=== PATIENT | female | born 1960 | race Asian ===

== ENCOUNTER 2016-10-01 14:15 | Emergency (ER) | payer OTHER ==
[~2016-10-01] VITALS: Ht 167.6 cm; Wt 63.6 kg
[2016-10-01 14:36] VITALS: BP 145/97; PULSE 82; RESP 19; O2SAT 100
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
[2016-10-01] MEDS ORDERED: AMOX-366 PO (17:36)
[2016-10-01] MEDS ORDERED: HYDR-4003 PO (17:36)
[2016-10-01] MEDS ORDERED: Amoxicillin-Clav 875-125 mg Tablet PO ONE (17:40)
[2016-10-01 18:07] VITALS: BP 129/68; PULSE 79; RESP 17; O2SAT 98
== END 2016-10-01 18:08 | disposition home or self-care (01) ==
LOC: SED 14:15
DX: S02.642B Fracture of ramus of left mandible, initial encounter for open fracture (principal); S02.601B Fracture of unspecified part of body of right mandible, initial encounter for open fracture; Y04.0XXA Assault by unarmed brawl or fight, initial encounter; Y93.9 Activity, unspecified; Y92.9 Unspecified place or not applicable; Y99.9 Unspecified external cause status